=== PATIENT | female | born 1960 | race Asian ===

== ENCOUNTER 2018-09-03 10:23 | Emergency (ER) | payer OTHER ==
[~2018-09-03] VITALS: Ht 162.6 cm; Wt 59.0 kg
--- NOTE | 2018-09-03 11:25 | PHYS DOC ---
Adult General Chief Complaint Chief Complaint: WRIST PAIN HPI HPI 58-year-old female presents with left wrist pain. The patient was at a friend's house when she slipped on the ice and fell onto her left forearm and wrist. As there is a bump at the base of the thumb dorsal side. She denies any other injuries or complaints. She does have motion of the wrist and forearm with minimal pain. Review of Systems Review of Systems Constitutional: Denies fever or chills [] Eyes: Denies change in visual acuity, redness, or eye pain [] HENT: Denies nasal congestion or sore throat [] Respiratory: Denies cough or shortness of breath [] Cardiovascular: No additional information not addressed in HPI [] GI: Denies abdominal pain, nausea, vomiting, bloody stools or diarrhea [] : Denies dysuria or hematuria [] Musculoskeletal: Left wrist pain[] Integument: Denies rash or skin lesions [] Neurologic: Denies headache, focal weakness or sensory changes [] Endocrine: Denies polyuria or polydipsia [] All other systems were reviewed and found to be within normal limits, except as documented in this note. Physical Exam Physical Exam Constitutional: Well developed, well nourished, no acute distress, non-toxic appearance. [] HENT: Normocephalic, atraumatic, bilateral external ears normal, oropharynx moist, no oral exudates, nose normal. [] Eyes: PERRLA, EOMI, conjunctiva normal, no discharge. [] Neck: Normal range of motion, no tenderness, supple, no stridor. [] Cardiovascular:Heart rate regular rhythm, no murmur [] Lungs & Thorax: Bilateral breath sounds clear to auscultation [] Abdomen: Bowel sounds normal, soft, no tenderness, no masses, no pulsatile masses. [] Skin: Warm, dry, no erythema, no rash. [] Back: No tenderness, no CVA tenderness. [] Extremities: Mild tenderness over the wrist or the base of the thumb, posterior spine. There is slight swelling in this area.[] Neurologic: Alert and oriented X 3, normal motor function, normal sensory function, no focal deficits noted. [] Psychologic: Affect normal, judgement normal, mood normal. [] EKG EKG [] Radiology/Procedures Radiology/Procedures [] Impressions: WRIST 3V LEFT History: FALL ON ICE THIS MORNING. Comparison: None are available No evidence of acute fracture or dislocation. Fat planes around the wrist appear preserved. No aggressive bone destruction. IMPRESSION: No evidence of acute fracture or dislocation. If symptoms persist, consider outpatient MRI. Electronically signed by: Verito Cherry MD (09/03/2018 11:40 AM) [facility] DICTATED AND SIGNED BY: VERITO CHERRY MD DATE: 09/03/18 [id number] CC: EMIL LU DO; [facility] Course & Med Decision Making Course & Med Decision Making Pertinent Labs and Imaging studies reviewed. (See chart for details) Patient does not appear to have a fracture. I believe she does has a contusion of the wrist. I recommended conservative care. She is stable for discharge at this time. [] Dragon Disclaimer Dragon Disclaimer This electronic medical record was generated, in whole or in part, using a voice recognition dictation system. Departure Departure: Impression: Primary Impression: Contusion of left wrist, initial encounter Disposition: 01 HOME, SELF-CARE Condition: STABLE Referrals: [facility] DRAPER (PCP) Patient Instructions: Contusion, [id number], Wrist Pain, [id number] EMIL LU DO Sep 03, 2018 11:25
[2018-09-03 11:36] VITALS: BP 131/63
--- NOTE | 2018-09-03 11:44 | RAD ---
WRIST 3V LEFT History: FALL ON ICE THIS MORNING. Comparison: None are available No evidence of acute fracture or dislocation. Fat planes around the wrist appear preserved. No aggressive bone destruction. IMPRESSION: No evidence of acute fracture or dislocation. If symptoms persist, consider outpatient MRI. Electronically signed by: Colton Cherry MD (09/03/2018 11:40 AM) [facility]
== END 2018-09-03 11:38 | disposition home or self-care (01) ==
LOC: ER 10:23
DX: S60.212A Contusion of left wrist, initial encounter (principal); W00.0XXA Fall on same level due to ice and snow, initial encounter; Y93.89 Activity, other specified; Y92.098 Other place in other non-institutional residence as the place of occurrence of the external cause; Y99.8 Other external cause status
CPT/HCPCS: 73110; 99284